=== PATIENT | male | born 1960 | race Caucasian/White ===

== ENCOUNTER → 2017-10-06 | Outpatient (CLI) | payer BC ==
[2016-05-10 13:43] VITALS: BP 124/86
[~2017-10-06] MED LIST: IBUPROFEN200 MG PO; TYLENOL 325MG325 MG PO
[2017-10-06 10:41] LABS: EOS # 0.2 (0.04-0.40); EOS % 3.2 % (0.0-4.0); HEMATOCRIT 39.9 % (42.0-52.0); HEMOGLOBIN 13.5 g/dL (13.5-18.0); LYMPH# 1.4 (1.50-4.00); MEAN CELL VOLUME 91 fl (78-100); MEAN CORPUSCULAR HEMOGLOBIN 31 pg (27-31); MEAN CORPUSCULAR HGB CONC 34 g/dL (33-37); MEAN PLATELET VOLUME 9.1 fl (7.4-10.4); MONO # 0.7 (0.20-0.80); NEU # 4.6 (1.40-6.50); PLATELET COUNT 251 K/mm3 (130-400); RED BLOOD COUNT 4.38 M/mm3 (4.20-5.60); RED CELL DISTRIBUTION WIDTH 12.3 % (11.5-14.5); WHITE BLOOD COUNT 6.9 K/mm3 (4.8-10.8)
[2017-10-06 10:57] LABS: ALBUMIN 4.1 g/dL (3.5-5.0); BUN/CREATININE RATIO 24.5 (6.0-26.0); CALCIUM 9.5 mg/dL (8.4-10.2); POTASSIUM 4.6 mmol/L (3.6-5.0); TOTAL PROTEIN 7.2 g/dL (6.3-8.2)
[2017-10-06 11:58] LABS: ERYTHROCYTE SEDIMENTATION RATE 8 mm/hr (0-20)
== END ==
LOC: LAB 10:14
PROVIDERS: Internal Medicine
DX: Z00.00 Encounter for general adult medical examination without abnormal findings (principal); Z12.5 Encounter for screening for malignant neoplasm of prostate

== ENCOUNTER → 2018-07-21 | Outpatient (CLI) | payer BC ==
[2016-05-10 13:43] VITALS: BP 124/86
[2018-07-21 08:54] LABS: ALBUMIN 4.3 g/dL (3.5-5.0); CALCIUM 9.5 mg/dL (8.4-10.2); TOTAL BILIRUBIN 1.2 mg/dL (0.2-1.3); TOTAL PROTEIN 7.2 g/dL (6.3-8.2)
[2018-07-21 09:01] LABS: BASO # 0.1 (0.02-0.10); EOS # 0.1 (0.04-0.40); EOS % 2.4 % (0.0-4.0); HEMATOCRIT 39.4 % (42.0-52.0); HEMOGLOBIN 13.6 g/dL (13.5-18.0); LYMPH# 1.4 (1.50-4.00); MEAN CELL VOLUME 91 fl (78-100); MEAN CORPUSCULAR HEMOGLOBIN 31 pg (27-31); MEAN CORPUSCULAR HGB CONC 35 g/dL (33-37); MEAN PLATELET VOLUME 9.4 fl (7.4-10.4); MONO # 0.5 (0.20-0.80); PLATELET COUNT 308 K/mm3 (130-400); RED BLOOD COUNT 4.33 M/mm3 (4.20-5.60); RED CELL DISTRIBUTION WIDTH 12.5 % (11.5-14.5)
[2018-07-21 11:05] LABS: ERYTHROCYTE SEDIMENTATION RATE 6 mm/hr (0-20)
== END ==
LOC: LAB 08:15
PROVIDERS: Internal Medicine
DX: Z12.5 Encounter for screening for malignant neoplasm of prostate (principal); Z00.00 Encounter for general adult medical examination without abnormal findings

== ENCOUNTER → 2018-10-01 | Outpatient (CLI) | payer BC ==
[2016-05-10 13:43] VITALS: BP 124/86
== END ==
LOC: LAB 10:57
DX: Z12.11 Encounter for screening for malignant neoplasm of colon (principal); Z00.00 Encounter for general adult medical examination without abnormal findings

== ENCOUNTER → 2019-09-09 | Outpatient (CLI) | payer BC ==
[2016-05-10 13:43] VITALS: BP 124/86
[2019-09-09 08:40] LABS: ALBUMIN 4.4 g/dL (3.5-5.0); POTASSIUM 4.3 mmol/L (3.5-5.1)
[2019-09-09 08:41] LABS: CALCIUM 9.9 mg/dL (8.3-10.5)
[2019-09-09 08:42] LABS: TOTAL PROTEIN 7.5 g/dL (6.4-8.3)
[2019-09-09 08:44] LABS: TOTAL BILIRUBIN 1.2 mg/dL (0.2-1.2)
[2019-09-09 09:34] LABS: BASO # 0.1 (0.02-0.10); EOS # 0.1 (0.04-0.40); EOS % 1.7 % (0.0-4.0); HEMATOCRIT 41.6 % (42.0-52.0); HEMOGLOBIN 14.2 g/dL (13.5-18.0); LYMPH# 1.7 (1.50-4.00); MEAN CELL VOLUME 90 fl (78-100); MEAN CORPUSCULAR HEMOGLOBIN 31 pg (27-31); MEAN CORPUSCULAR HGB CONC 34 g/dL (33-37); MEAN PLATELET VOLUME 8.9 fl (7.4-10.4); MONO # 0.5 (0.20-0.80); NEU # 3.7 (1.40-6.50); PLATELET COUNT 307 K/mm3 (130-400); RED BLOOD COUNT 4.64 M/mm3 (4.20-5.60); RED CELL DISTRIBUTION WIDTH 13.1 % (11.5-14.5)
[2019-09-09 09:37] LABS: ERYTHROCYTE SEDIMENTATION RATE 6 mm/hr (0-20)
== END ==
LOC: LAB 08:19
PROVIDERS: Internal Medicine
DX: Z00.00 Encounter for general adult medical examination without abnormal findings (principal); Z12.5 Encounter for screening for malignant neoplasm of prostate; Z12.11 Encounter for screening for malignant neoplasm of colon

== ENCOUNTER → 2019-09-22 | Outpatient (CLI) | payer BC ==
[2016-05-10 13:43] VITALS: BP 124/86
== END ==
LOC: LAB 12:02
DX: Z00.00 Encounter for general adult medical examination without abnormal findings (principal); Z12.11 Encounter for screening for malignant neoplasm of colon

== ENCOUNTER 2019-11-11 08:30 | Outpatient (RCR) | payer BC ==
[2016-05-10 13:43] VITALS: BP 124/86
== END 2019-12-13 | disposition still patient (30) ==
LOC: PT
DX: M25.561 Pain in right knee (principal); R53.1 Weakness

== ENCOUNTER → 2019-12-10 | Outpatient (CLI) | payer BC ==
[2016-05-10 13:43] VITALS: BP 124/86
[2019-12-10 11:09] LABS: HEMATOCRIT 41.5 % (42.0-52.0); HEMOGLOBIN 13.6 g/dL (13.5-18.0); MEAN CELL VOLUME 93 fl (78-100); MEAN CORPUSCULAR HEMOGLOBIN 30 pg (27-31); MEAN CORPUSCULAR HGB CONC 33 g/dL (33-37); MEAN PLATELET VOLUME 9.1 fl (7.4-10.4); PLATELET COUNT 250 K/mm3 (130-400); RED BLOOD COUNT 4.48 M/mm3 (4.20-5.60); RED CELL DISTRIBUTION WIDTH 12.9 % (11.5-14.5); WHITE BLOOD COUNT 4.7 K/mm3 (4.8-10.8)
[2019-12-10 11:37] LABS: POTASSIUM 4.2 mmol/L (3.5-5.1)
[2019-12-10 11:39] LABS: CALCIUM 8.6 mg/dL (8.3-10.5)
[2019-12-10 11:40] LABS: TOTAL PROTEIN 7.2 g/dL (6.4-8.3)
[2019-12-10 11:42] LABS: TOTAL BILIRUBIN 0.3 mg/dL (0.2-1.2)
[2019-12-10 12:17] LABS: LYMPHOCYTE 30 % (20-51); MONOCYTE 15 % (3-10); NEUTROPHILS 52 % (42-75)
[2019-12-10 12:33] LABS: ERYTHROCYTE SEDIMENTATION RATE 26 mm/hr (0-20)
== END ==
LOC: RAD 10:55 → LAB 10:55
PROVIDERS: Internal Medicine
DX: C61 Malignant neoplasm of prostate (principal); R06.02 Shortness of breath

== ENCOUNTER 2021-03-28 20:01 | Emergency (ER) | payer BC ==
[2021-03-28] MEDS ORDERED: ACETAMINOPHEN-H1 TA2 PO (20:43)
[2021-03-28] MEDS ORDERED: FLOMAX0.4 MG PO (20:43)
[2021-03-28] MEDS ORDERED: TRAMADOL 50 MG TAB PO (20:44)
[2021-03-28] MEDS ORDERED: KLONOPIN 0.5MG0.5 MG PO (20:44)
[2021-03-28 21:58] LABS: URINE APPEARANCE CLEAR; URINE COLOR YELLOW; URINE WBC 0 /hpf (0-3)
[2021-03-28 21:59] LABS: PH-URINE 7.5 (5.0 - 8.0); URINE BILIRUBIN NEGATIVE (NEGATIVE); URINE BLOOD NEGATIVE (NEGATIVE); URINE GLUCOSE NEGATIVE (NEGATIVE); URINE KETONE NEGATIVE (NEGATIVE); URINE LEUKOCYTE ESTERASE NEGATIVE (NEGATIVE); URINE NITRATE NEGATIVE (NEGATIVE); URINE PROTEIN(semi-quant) NEGATIVE (NEGATIVE); URINE UROBILINOGEN NORMAL (NORMAL)
[2021-03-28 22:18] VITALS: BP 111/66
== END 2021-03-28 22:18 | disposition home or self-care (01) ==
LOC: ED 20:01
PROVIDERS: Nurse Practitioner
DX: N99.89 Other postprocedural complications and disorders of genitourinary system (principal); N40.1 Benign prostatic hyperplasia with lower urinary tract symptoms; Z85.46 Personal history of malignant neoplasm of prostate

== ENCOUNTER → 2021-05-16 | Outpatient (CLI) | payer BC ==
[~2021-05-16] MED LIST changes: +ACETAMINOPHEN-H1 TA2 PO; +FLOMAX0.4 MG PO; +KLONOPIN 0.5MG0.5 MG PO; +ROXICODONE 55 MG/TAB PO; +TIZANIDINE HYDRO4 MG PO; +TRAMADOL 50 MG TAB PO
[2021-05-16 14:53] LABS: HEMATOCRIT 32.1 % (42.0-52.0); HEMOGLOBIN 10.8 g/dL (13.5-18.0); MEAN PLATELET VOLUME 8.5 fl (7.4-10.4); RED BLOOD COUNT 3.48 M/mm3 (4.20-5.60); RED CELL DISTRIBUTION WIDTH 11.9 % (11.5-14.5)
== END ==
LOC: LAB 14:41
PROVIDERS: Internal Medicine
DX: C61 Malignant neoplasm of prostate (principal); C77.2 Secondary and unspecified malignant neoplasm of intra-abdominal lymph nodes; C79.51 Secondary malignant neoplasm of bone

== ENCOUNTER 2021-05-18 09:35 | Emergency (ER) | payer BC ==
[~2021-05-18 09:35] MED LIST changes: -ROXICODONE 55 MG/TAB PO; -TIZANIDINE HYDRO4 MG PO
[2021-05-18 10:45] LABS: BASO # 0.06 (0.02-0.10); EOS # 0.09 (0.04-0.40); EOS % 1.3 % (0.0-4.0); HEMATOCRIT 30.6 % (42.0-52.0); HEMOGLOBIN 10.2 g/dL (13.5-18.0); LYMPH# 1.16 (1.50-4.00); MEAN CELL VOLUME 93 fl (78-100); MEAN CORPUSCULAR HEMOGLOBIN 31 pg (27-31); MEAN CORPUSCULAR HGB CONC 33 g/dL (33-37); MEAN PLATELET VOLUME 8.8 fl (7.4-10.4); MONO # 0.66 (0.20-0.80); NEU # 5.15 (1.40-6.50); PLATELET COUNT 387 K/mm3 (130-400); RED CELL DISTRIBUTION WIDTH 11.9 % (11.5-14.5); WHITE BLOOD COUNT 7.1 K/mm3 (4.8-10.8)
[2021-05-18 10:50] LABS: ALBUMIN 3.5 g/dL (3.5-5.0); POTASSIUM 4.5 mmol/L (3.5-5.1)
[2021-05-18 10:52] LABS: TOTAL PROTEIN 6.6 g/dL (6.4-8.3)
[2021-05-18 10:54] LABS: TOTAL BILIRUBIN 0.8 mg/dL (0.2-1.2)
[2021-05-18 11:00] LABS: URINE APPEARANCE CLEAR; URINE BILIRUBIN NEGATIVE (NEGATIVE); URINE BLOOD NEGATIVE (NEGATIVE); URINE COLOR YELLOW; URINE GLUCOSE NEGATIVE (NEGATIVE); URINE KETONE NEGATIVE (NEGATIVE); URINE LEUKOCYTE ESTERASE NEGATIVE (NEGATIVE); URINE MUCUS PRESENT (NOT PRESENT); URINE NITRATE NEGATIVE (NEGATIVE); URINE PROTEIN(semi-quant) NEGATIVE (NEGATIVE); URINE UROBILINOGEN NORMAL (NORMAL); URINE WBC 0-1 /hpf (0-3)
[2021-05-18] MEDS ORDERED: TIZANIDINE HYDRO4 MG PO (13:08)
[2021-05-18] MEDS ORDERED: ROXICODONE 55 MG/TAB PO (13:08)
[2021-05-18 14:02] VITALS: BP 107/66
== END 2021-05-18 13:06 | disposition home or self-care (01) ==
LOC: ED 09:35
PROVIDERS: Nurse Practitioner
DX: C61 Malignant neoplasm of prostate (principal); K62.5 Hemorrhage of anus and rectum
CPT/HCPCS: J2405; J7030; Q9967

== ENCOUNTER → 2021-05-29 | Outpatient (CLI) | payer BC ==
[~2021-05-29] MED LIST changes: +ROXICODONE 55 MG/TAB PO; +TIZANIDINE HYDRO4 MG PO
[2021-05-29 08:15] LABS: BASO # 0.01 (0.02-0.10); EOS # 0.01 (0.04-0.40); EOS % 0.2 % (0.0-4.0); HEMATOCRIT 29.5 % (42.0-52.0); HEMOGLOBIN 9.5 g/dL (13.5-18.0); MEAN CELL VOLUME 94 fl (78-100); MEAN CORPUSCULAR HEMOGLOBIN 30 pg (27-31); MEAN CORPUSCULAR HGB CONC 32 g/dL (33-37); MEAN PLATELET VOLUME 8.8 fl (7.4-10.4); MONO # 0.07 (0.20-0.80); NEU # 2.93 (1.40-6.50); PLATELET COUNT 370 K/mm3 (130-400); RED BLOOD COUNT 3.14 M/mm3 (4.20-5.60); RED CELL DISTRIBUTION WIDTH 11.8 % (11.5-14.5); WHITE BLOOD COUNT 4.3 K/mm3 (4.8-10.8)
[2021-05-29 08:17] LABS: ALBUMIN 3.2 g/dL (3.5-5.0); POTASSIUM 3.9 mmol/L (3.5-5.1)
[2021-05-29 08:19] LABS: CALCIUM 8.7 mg/dL (8.3-10.5)
[2021-05-29 08:20] LABS: TOTAL PROTEIN 5.9 g/dL (6.4-8.3)
[2021-05-29 08:22] LABS: TOTAL BILIRUBIN 0.9 mg/dL (0.2-1.2)
== END ==
LOC: LAB 07:56
PROVIDERS: Internal Medicine
DX: C61 Malignant neoplasm of prostate (principal)

== ENCOUNTER → 2021-06-05 | Outpatient (CLI) | payer BC ==
[2021-06-05 08:36] LABS: BASO # 0.04 (0.02-0.10); EOS # 0.01 (0.04-0.40); EOS % 0.2 % (0.0-4.0); HEMATOCRIT 29.6 % (42.0-52.0); HEMOGLOBIN 9.6 g/dL (13.5-18.0); LYMPH# 1.37 (1.50-4.00); MEAN CELL VOLUME 91 fl (78-100); MEAN CORPUSCULAR HEMOGLOBIN 30 pg (27-31); MEAN CORPUSCULAR HGB CONC 32 g/dL (33-37); MONO # 0.73 (0.20-0.80); NEU # 3.99 (1.40-6.50); PLATELET COUNT 478 K/mm3 (130-400); RED BLOOD COUNT 3.25 M/mm3 (4.20-5.60); RED CELL DISTRIBUTION WIDTH 12.6 % (11.5-14.5); WHITE BLOOD COUNT 6.2 K/mm3 (4.8-10.8)
[2021-06-05 08:42] LABS: ALBUMIN 2.9 g/dL (3.5-5.0)
[2021-06-05 08:44] LABS: CALCIUM 8.8 mg/dL (8.3-10.5)
[2021-06-05 08:45] LABS: TOTAL PROTEIN 5.9 g/dL (6.4-8.3)
[2021-06-05 08:47] LABS: TOTAL BILIRUBIN 0.4 mg/dL (0.2-1.2)
== END ==
LOC: LAB 08:20
PROVIDERS: Internal Medicine
DX: C61 Malignant neoplasm of prostate (principal)

== ENCOUNTER → 2021-07-03 | Outpatient (CLI) | payer BC ==
[2021-07-03 12:26] LABS: HEMATOCRIT 30.9 % (42.0-52.0); HEMOGLOBIN 9.8 g/dL (13.5-18.0); MEAN CELL VOLUME 95 fl (78-100); MEAN CORPUSCULAR HEMOGLOBIN 30 pg (27-31); MEAN CORPUSCULAR HGB CONC 32 g/dL (33-37); MEAN PLATELET VOLUME 8.5 fl (7.4-10.4); PLATELET COUNT 307 K/mm3 (130-400); RED BLOOD COUNT 3.25 M/mm3 (4.20-5.60); RED CELL DISTRIBUTION WIDTH 16.1 % (11.5-14.5); WHITE BLOOD COUNT 3.9 K/mm3 (4.8-10.8)
[2021-07-03 12:45] LABS: BAND 3 % (0-10); LYMPHOCYTE 13 % (20-51); MONOCYTE 2 % (3-10); NEUTROPHILS 79 % (42-75)
[2021-07-03 12:48] LABS: ALBUMIN 3.2 g/dL (3.5-5.0); POTASSIUM 3.9 mmol/L (3.5-5.1)
[2021-07-03 12:49] LABS: CALCIUM 9.2 mg/dL (8.3-10.5)
[2021-07-03 12:52] LABS: TOTAL BILIRUBIN 0.5 mg/dL (0.2-1.2)
== END ==
LOC: LAB 12:11
PROVIDERS: Internal Medicine
DX: C61 Malignant neoplasm of prostate (principal)

== ENCOUNTER → 2021-07-10 | Outpatient (CLI) | payer BC ==
[2021-07-10 07:56] LABS: ALBUMIN 2.9 g/dL (3.5-5.0)
[2021-07-10 07:57] LABS: POTASSIUM 3.9 mmol/L (3.5-5.1)
[2021-07-10 07:58] LABS: CALCIUM 9.3 mg/dL (8.3-10.5)
[2021-07-10 07:59] LABS: TOTAL PROTEIN 5.8 g/dL (6.4-8.3)
[2021-07-10 08:01] LABS: TOTAL BILIRUBIN 0.4 mg/dL (0.2-1.2)
== END ==
LOC: LAB 07:15
PROVIDERS: Internal Medicine
DX: C61 Malignant neoplasm of prostate (principal)

== ENCOUNTER → 2021-07-11 | Outpatient (CLI) | payer BC ==
[2021-07-11 14:16] LABS: URINE MUCUS PRESENT (NOT PRESENT); URINE WBC >50 /hpf (0-3)
== END ==
LOC: LAB 13:42
PROVIDERS: Internal Medicine
DX: R19.7 Diarrhea, unspecified (principal); R30.9 Painful micturition, unspecified

== ENCOUNTER → 2021-07-17 | Outpatient (CLI) | payer BC ==
[2021-07-17 08:01] LABS: BASO # 0.03 (0.02-0.10); EOS # 0.07 (0.04-0.40); EOS % 1.1 % (0.0-4.0); HEMATOCRIT 33.7 % (42.0-52.0); HEMOGLOBIN 10.6 g/dL (13.5-18.0); LYMPH# 0.86 (1.50-4.00); MEAN CELL VOLUME 93 fl (78-100); MEAN CORPUSCULAR HEMOGLOBIN 29 pg (27-31); MEAN CORPUSCULAR HGB CONC 32 g/dL (33-37); MEAN PLATELET VOLUME 7.9 fl (7.4-10.4); MONO # 0.43 (0.20-0.80); NEU # 5.18 (1.40-6.50); PLATELET COUNT 386 K/mm3 (130-400); RED BLOOD COUNT 3.64 M/mm3 (4.20-5.60); RED CELL DISTRIBUTION WIDTH 17.3 % (11.5-14.5); WHITE BLOOD COUNT 6.6 K/mm3 (4.8-10.8)
[2021-07-17 08:07] LABS: ALBUMIN 3.1 g/dL (3.5-5.0)
[2021-07-17 08:08] LABS: POTASSIUM 4.4 mmol/L (3.5-5.1)
[2021-07-17 08:09] LABS: CALCIUM 9.3 mg/dL (8.3-10.5)
[2021-07-17 08:10] LABS: TOTAL PROTEIN 6.3 g/dL (6.4-8.3)
[2021-07-17 08:12] LABS: TOTAL BILIRUBIN 0.3 mg/dL (0.2-1.2)
== END ==
LOC: LAB 07:34
PROVIDERS: Internal Medicine
DX: C61 Malignant neoplasm of prostate (principal)

== ENCOUNTER → 2021-07-24 | Outpatient (CLI) | payer BC ==
[2021-07-24 07:43] LABS: BASO # 0.01 (0.02-0.10); HEMATOCRIT 33.2 % (42.0-52.0); HEMOGLOBIN 10.6 g/dL (13.5-18.0); LYMPH# 0.91 (1.50-4.00); MEAN CELL VOLUME 91 fl (78-100); MEAN CORPUSCULAR HEMOGLOBIN 29 pg (27-31); MEAN CORPUSCULAR HGB CONC 32 g/dL (33-37); MEAN PLATELET VOLUME 8.7 fl (7.4-10.4); MONO # 0.06 (0.20-0.80); NEU # 2.62 (1.40-6.50); PLATELET COUNT 464 K/mm3 (130-400); RED BLOOD COUNT 3.66 M/mm3 (4.20-5.60); WHITE BLOOD COUNT 3.6 K/mm3 (4.8-10.8)
[2021-07-24 07:49] LABS: ALBUMIN 3.5 g/dL (3.5-5.0); POTASSIUM 3.5 mmol/L (3.5-5.1)
[2021-07-24 07:50] LABS: CALCIUM 9.3 mg/dL (8.3-10.5)
[2021-07-24 07:51] LABS: TOTAL PROTEIN 6.5 g/dL (6.4-8.3)
[2021-07-24 07:53] LABS: TOTAL BILIRUBIN 0.9 mg/dL (0.2-1.2)
== END ==
LOC: LAB 07:13
PROVIDERS: Internal Medicine
DX: C61 Malignant neoplasm of prostate (principal)

== ENCOUNTER → 2021-07-31 | Outpatient (CLI) | payer BC ==
[2021-07-31 07:59] LABS: HEMOGLOBIN 9.9 g/dL (13.5-18.0); MEAN CELL VOLUME 93 fl (78-100); MEAN CORPUSCULAR HEMOGLOBIN 29 pg (27-31); MEAN CORPUSCULAR HGB CONC 31 g/dL (33-37); MEAN PLATELET VOLUME 8.2 fl (7.4-10.4); PLATELET COUNT 302 K/mm3 (130-400); RED BLOOD COUNT 3.46 M/mm3 (4.20-5.60); RED CELL DISTRIBUTION WIDTH 17.7 % (11.5-14.5); WHITE BLOOD COUNT 2.5 K/mm3 (4.8-10.8)
[2021-07-31 08:06] LABS: POTASSIUM 3.8 mmol/L (3.5-5.1)
[2021-07-31 08:07] LABS: CALCIUM 9.1 mg/dL (8.3-10.5)
[2021-07-31 08:08] LABS: TOTAL PROTEIN 5.6 g/dL (6.4-8.3)
[2021-07-31 08:10] LABS: TOTAL BILIRUBIN 0.4 mg/dL (0.2-1.2)
[2021-07-31 08:23] LABS: BAND 2 % (0-10); LYMPHOCYTE 37 % (20-51); METAMYELOCYTE 3 % (0-0); MONOCYTE 18 % (3-10); NEUTROPHILS 36 % (42-75)
== END ==
LOC: LAB 07:45
PROVIDERS: Internal Medicine
DX: C61 Malignant neoplasm of prostate (principal)

== ENCOUNTER → 2021-08-07 | Outpatient (CLI) | payer BC ==
[2021-08-07 07:44] LABS: BASO # 0.05 K/mm3 (0.02-0.10); EOS # 0.05 K/mm3 (0.04-0.40); EOS % 0.6 % (0.0-4.0); HEMATOCRIT 34.3 % (42.0-52.0); HEMOGLOBIN 10.6 g/dL (13.5-18.0); LYMPH# 1.07 K/mm3 (1.50-4.00); MEAN CELL VOLUME 94 fl (78-100); MEAN CORPUSCULAR HEMOGLOBIN 29 pg (27-31); MEAN CORPUSCULAR HGB CONC 31 g/dL (33-37); MEAN PLATELET VOLUME 8.4 fl (7.4-10.4); MONO # 0.42 K/mm3 (0.20-0.80); NEU # 7.08 K/mm3 (1.40-6.50); PLATELET COUNT 373 K/mm3 (130-400); RED BLOOD COUNT 3.64 M/mm3 (4.20-5.60); RED CELL DISTRIBUTION WIDTH 18.2 % (11.5-14.5); WHITE BLOOD COUNT 8.8 K/mm3 (4.8-10.8)
[2021-08-07 07:55] LABS: ALBUMIN 3.4 g/dL (3.5-5.0); POTASSIUM 4.1 mmol/L (3.5-5.1)
[2021-08-07 07:56] LABS: CALCIUM 9.6 mg/dL (8.3-10.5)
[2021-08-07 07:57] LABS: TOTAL PROTEIN 6.4 g/dL (6.4-8.3)
[2021-08-07 07:59] LABS: TOTAL BILIRUBIN 0.4 mg/dL (0.2-1.2)
== END ==
LOC: LAB 07:10
PROVIDERS: Internal Medicine
DX: C61 Malignant neoplasm of prostate (principal)

== ENCOUNTER → 2021-08-14 | Outpatient (CLI) | payer BC ==
[2021-08-14 07:44] LABS: BASO # 0.03 K/mm3 (0.02-0.10); EOS # 0.03 K/mm3 (0.04-0.40); EOS % 0.8 % (0.0-4.0); HEMATOCRIT 33.9 % (42.0-52.0); HEMOGLOBIN 10.8 g/dL (13.5-18.0); LYMPH# 0.63 K/mm3 (1.50-4.00); MEAN CELL VOLUME 93 fl (78-100); MEAN CORPUSCULAR HEMOGLOBIN 30 pg (27-31); MEAN CORPUSCULAR HGB CONC 32 g/dL (33-37); MEAN PLATELET VOLUME 8.4 fl (7.4-10.4); NEU # 3.17 K/mm3 (1.40-6.50); PLATELET COUNT 301 K/mm3 (130-400); RED BLOOD COUNT 3.66 M/mm3 (4.20-5.60); RED CELL DISTRIBUTION WIDTH 17.5 % (11.5-14.5)
[2021-08-14 08:57] LABS: ALBUMIN 3.5 g/dL (3.5-5.0)
[2021-08-14 08:58] LABS: CALCIUM 9.1 mg/dL (8.3-10.5)
[2021-08-14 08:59] LABS: TOTAL PROTEIN 6.3 g/dL (6.4-8.3)
[2021-08-14 09:01] LABS: TOTAL BILIRUBIN 0.6 mg/dL (0.2-1.2)
== END ==
LOC: LAB 07:14
PROVIDERS: Internal Medicine
DX: C61 Malignant neoplasm of prostate (principal)

== ENCOUNTER → 2021-08-21 | Outpatient (CLI) | payer BC ==
[2021-08-21 10:52] LABS: BASO # 0.03 K/mm3 (0.02-0.10); EOS # 0.03 K/mm3 (0.04-0.40); EOS % 1.1 % (0.0-4.0); HEMATOCRIT 32.6 % (42.0-52.0); HEMOGLOBIN 10.1 g/dL (13.5-18.0); LYMPH# 0.64 K/mm3 (1.50-4.00); MEAN CELL VOLUME 92 fl (78-100); MEAN CORPUSCULAR HEMOGLOBIN 29 pg (27-31); MEAN CORPUSCULAR HGB CONC 31 g/dL (33-37); MEAN PLATELET VOLUME 8.3 fl (7.4-10.4); MONO # 0.74 K/mm3 (0.20-0.80); NEU # 1.21 K/mm3 (1.40-6.50); PLATELET COUNT 311 K/mm3 (130-400); RED BLOOD COUNT 3.53 M/mm3 (4.20-5.60); RED CELL DISTRIBUTION WIDTH 17.5 % (11.5-14.5); WHITE BLOOD COUNT 2.7 K/mm3 (4.8-10.8)
[2021-08-21 11:06] LABS: ALBUMIN 3.3 g/dL (3.5-5.0); POTASSIUM 3.7 mmol/L (3.5-5.1)
[2021-08-21 11:08] LABS: CALCIUM 9.1 mg/dL (8.3-10.5)
[2021-08-21 11:09] LABS: TOTAL PROTEIN 6.2 g/dL (6.4-8.3)
[2021-08-21 11:11] LABS: TOTAL BILIRUBIN 0.5 mg/dL (0.2-1.2)
== END ==
LOC: LAB 10:35
PROVIDERS: Internal Medicine
DX: C61 Malignant neoplasm of prostate (principal)

== ENCOUNTER → 2021-08-27 | Outpatient (CLI) | payer BC ==
[2021-08-27 08:54] LABS: BASO # 0.04 K/mm3 (0.02-0.10); EOS # 0.05 K/mm3 (0.04-0.40); EOS % 0.7 % (0.0-4.0); HEMATOCRIT 35.2 % (42.0-52.0); LYMPH# 1.24 K/mm3 (1.50-4.00); MEAN CELL VOLUME 91 fl (78-100); MEAN CORPUSCULAR HEMOGLOBIN 29 pg (27-31); MEAN CORPUSCULAR HGB CONC 31 g/dL (33-37); MEAN PLATELET VOLUME 8.6 fl (7.4-10.4); MONO # 0.84 K/mm3 (0.20-0.80); NEU # 4.75 K/mm3 (1.40-6.50); PLATELET COUNT 394 K/mm3 (130-400); RED BLOOD COUNT 3.85 M/mm3 (4.20-5.60); RED CELL DISTRIBUTION WIDTH 16.9 % (11.5-14.5)
[2021-08-27 09:26] LABS: ALBUMIN 3.4 g/dL (3.5-5.0); POTASSIUM 4.3 mmol/L (3.5-5.1)
[2021-08-27 09:27] LABS: CALCIUM 9.6 mg/dL (8.3-10.5)
[2021-08-27 09:28] LABS: TOTAL PROTEIN 6.5 g/dL (6.4-8.3)
[2021-08-27 09:30] LABS: TOTAL BILIRUBIN 0.4 mg/dL (0.2-1.2)
== END ==
LOC: LAB 07:27
PROVIDERS: Internal Medicine
DX: C61 Malignant neoplasm of prostate (principal)

== ENCOUNTER → 2021-09-03 | Outpatient (CLI) | payer BC ==
[2021-09-03 07:48] LABS: BASO # 0.01 K/mm3 (0.02-0.10); HEMATOCRIT 35.4 % (42.0-52.0); HEMOGLOBIN 11.1 g/dL (13.5-18.0); LYMPH# 0.76 K/mm3 (1.50-4.00); MEAN CELL VOLUME 92 fl (78-100); MEAN CORPUSCULAR HEMOGLOBIN 29 pg (27-31); MEAN CORPUSCULAR HGB CONC 31 g/dL (33-37); MEAN PLATELET VOLUME 8.4 fl (7.4-10.4); MONO # 0.15 K/mm3 (0.20-0.80); NEU # 4.65 K/mm3 (1.40-6.50); PLATELET COUNT 308 K/mm3 (130-400); RED BLOOD COUNT 3.87 M/mm3 (4.20-5.60); RED CELL DISTRIBUTION WIDTH 16.5 % (11.5-14.5); WHITE BLOOD COUNT 5.6 K/mm3 (4.8-10.8)
[2021-09-03 07:59] LABS: ALBUMIN 3.6 g/dL (3.5-5.0); POTASSIUM 3.9 mmol/L (3.5-5.1)
[2021-09-03 08:00] LABS: CALCIUM 9.3 mg/dL (8.3-10.5)
[2021-09-03 08:01] LABS: TOTAL PROTEIN 6.5 g/dL (6.4-8.3)
[2021-09-03 08:03] LABS: TOTAL BILIRUBIN 0.5 mg/dL (0.2-1.2)
== END ==
LOC: LAB 07:36
PROVIDERS: Internal Medicine
DX: C61 Malignant neoplasm of prostate (principal)

== ENCOUNTER → 2021-09-10 | Outpatient (CLI) | payer BC ==
[2021-09-10 07:56] LABS: BASO # 0.03 K/mm3 (0.02-0.10); EOS # 0.03 K/mm3 (0.04-0.40); EOS % 1.3 % (0.0-4.0); HEMATOCRIT 33.4 % (42.0-52.0); HEMOGLOBIN 10.3 g/dL (13.5-18.0); LYMPH# 0.67 K/mm3 (1.50-4.00); MEAN CELL VOLUME 92 fl (78-100); MEAN CORPUSCULAR HEMOGLOBIN 28 pg (27-31); MEAN CORPUSCULAR HGB CONC 31 g/dL (33-37); MEAN PLATELET VOLUME 8.3 fl (7.4-10.4); MONO # 0.51 K/mm3 (0.20-0.80); PLATELET COUNT 306 K/mm3 (130-400); RED BLOOD COUNT 3.65 M/mm3 (4.20-5.60); RED CELL DISTRIBUTION WIDTH 16.7 % (11.5-14.5); WHITE BLOOD COUNT 2.2 K/mm3 (4.8-10.8)
[2021-09-10 08:07] LABS: ALBUMIN 3.5 g/dL (3.5-5.0)
[2021-09-10 08:08] LABS: POTASSIUM 3.8 mmol/L (3.5-5.1)
[2021-09-10 08:10] LABS: TOTAL PROTEIN 6.1 g/dL (6.4-8.3)
[2021-09-10 08:12] LABS: TOTAL BILIRUBIN 0.3 mg/dL (0.2-1.2)
== END ==
LOC: LAB 07:44
PROVIDERS: Internal Medicine
DX: C61 Malignant neoplasm of prostate (principal)

== ENCOUNTER → 2021-09-17 | Outpatient (CLI) | payer BC ==
[2021-09-17 07:54] LABS: BASO # 0.03 K/mm3 (0.02-0.10); EOS # 0.05 K/mm3 (0.04-0.40); EOS % 0.4 % (0.0-4.0); HEMATOCRIT 37.6 % (42.0-52.0); HEMOGLOBIN 11.6 g/dL (13.5-18.0); LYMPH# 0.86 K/mm3 (1.50-4.00); MEAN CELL VOLUME 90 fl (78-100); MEAN CORPUSCULAR HEMOGLOBIN 28 pg (27-31); MEAN CORPUSCULAR HGB CONC 31 g/dL (33-37); MEAN PLATELET VOLUME 8.2 fl (7.4-10.4); MONO # 0.76 K/mm3 (0.20-0.80); NEU # 9.42 K/mm3 (1.40-6.50); PLATELET COUNT 402 K/mm3 (130-400); RED BLOOD COUNT 4.18 M/mm3 (4.20-5.60); RED CELL DISTRIBUTION WIDTH 16.5 % (11.5-14.5); WHITE BLOOD COUNT 11.2 K/mm3 (4.8-10.8)
[2021-09-17 08:15] LABS: ALBUMIN 3.6 g/dL (3.5-5.0); POTASSIUM 4.2 mmol/L (3.5-5.1)
[2021-09-17 08:16] LABS: CALCIUM 9.3 mg/dL (8.3-10.5)
[2021-09-17 08:18] LABS: TOTAL PROTEIN 6.9 g/dL (6.4-8.3)
[2021-09-17 08:19] LABS: TOTAL BILIRUBIN 0.3 mg/dL (0.2-1.2)
== END ==
LOC: LAB 07:18
PROVIDERS: Internal Medicine
DX: C61 Malignant neoplasm of prostate (principal)

== ENCOUNTER → 2021-09-25 | Outpatient (CLI) | payer BC ==
[2021-09-25 13:39] LABS: HEMATOCRIT 35.5 % (42.0-52.0); HEMOGLOBIN 10.9 g/dL (13.5-18.0); MEAN CELL VOLUME 90 fl (78-100); MEAN CORPUSCULAR HEMOGLOBIN 28 pg (27-31); MEAN CORPUSCULAR HGB CONC 31 g/dL (33-37); MEAN PLATELET VOLUME 8.3 fl (7.4-10.4); PLATELET COUNT 351 K/mm3 (130-400); RED BLOOD COUNT 3.96 M/mm3 (4.20-5.60); RED CELL DISTRIBUTION WIDTH 16.3 % (11.5-14.5); WHITE BLOOD COUNT 8.4 K/mm3 (4.8-10.8)
[2021-09-25 13:44] LABS: ALBUMIN 3.7 g/dL (3.5-5.0); POTASSIUM 4.2 mmol/L (3.5-5.1)
[2021-09-25 13:46] LABS: CALCIUM 8.9 mg/dL (8.3-10.5)
[2021-09-25 13:47] LABS: TOTAL PROTEIN 6.6 g/dL (6.4-8.3)
[2021-09-25 13:49] LABS: TOTAL BILIRUBIN 0.4 mg/dL (0.2-1.2)
[2021-09-25 14:04] LABS: LYMPHOCYTE 8 % (20-51); MONOCYTE 3 % (3-10); NEUTROPHILS 89 % (42-75)
== END ==
LOC: LAB 13:22
PROVIDERS: Internal Medicine
DX: Z01.89 Encounter for other specified special examinations (principal)

== ENCOUNTER → 2021-10-01 | Outpatient (CLI) | payer BC ==
[2021-10-01 10:26] LABS: HEMATOCRIT 33.7 % (42.0-52.0); HEMOGLOBIN 10.3 g/dL (13.5-18.0); MEAN CELL VOLUME 90 fl (78-100); MEAN CORPUSCULAR HEMOGLOBIN 27 pg (27-31); MEAN CORPUSCULAR HGB CONC 31 g/dL (33-37); MEAN PLATELET VOLUME 8.1 fl (7.4-10.4); PLATELET COUNT 285 K/mm3 (130-400); RED BLOOD COUNT 3.76 M/mm3 (4.20-5.60); RED CELL DISTRIBUTION WIDTH 16.3 % (11.5-14.5)
[2021-10-01 10:44] LABS: ALBUMIN 3.5 g/dL (3.5-5.0); POTASSIUM 3.8 mmol/L (3.5-5.1)
[2021-10-01 10:46] LABS: CALCIUM 9.1 mg/dL (8.3-10.5)
[2021-10-01 10:47] LABS: TOTAL PROTEIN 6.1 g/dL (6.4-8.3)
[2021-10-01 10:49] LABS: TOTAL BILIRUBIN 0.4 mg/dL (0.2-1.2)
[2021-10-01 10:53] LABS: WHITE BLOOD COUNT 1.8 K/mm3 (4.8-10.8)
[2021-10-01 10:54] LABS: BAND 2 % (0-10); LYMPHOCYTE 40 % (20-51); MONOCYTE 26 % (3-10); NEUTROPHILS 25 % (42-75)
[2021-10-01 10:55] LABS: HYPOCHROMIA 1+
== END ==
LOC: LAB 10:16
PROVIDERS: Internal Medicine
DX: C61 Malignant neoplasm of prostate (principal)

== ENCOUNTER → 2021-10-08 | Outpatient (CLI) | payer BC ==
[2021-10-08 08:18] LABS: BASO # 0.06 K/mm3 (0.02-0.10); EOS # 0.12 K/mm3 (0.04-0.40); HEMATOCRIT 34.7 % (42.0-52.0); HEMOGLOBIN 10.9 g/dL (13.5-18.0); LYMPH# 0.95 K/mm3 (1.50-4.00); MEAN CELL VOLUME 88 fl (78-100); MEAN CORPUSCULAR HEMOGLOBIN 28 pg (27-31); MEAN CORPUSCULAR HGB CONC 31 g/dL (33-37); MEAN PLATELET VOLUME 8.4 fl (7.4-10.4); MONO # 0.56 K/mm3 (0.20-0.80); NEU # 4.31 K/mm3 (1.40-6.50); PLATELET COUNT 341 K/mm3 (130-400); RED BLOOD COUNT 3.96 M/mm3 (4.20-5.60); WHITE BLOOD COUNT 6.1 K/mm3 (4.8-10.8)
[2021-10-08 08:39] LABS: ALBUMIN 3.5 g/dL (3.5-5.0); POTASSIUM 3.5 mmol/L (3.5-5.1)
[2021-10-08 08:40] LABS: CALCIUM 9.1 mg/dL (8.3-10.5)
[2021-10-08 08:41] LABS: TOTAL PROTEIN 5.9 g/dL (6.4-8.3)
[2021-10-08 08:43] LABS: TOTAL BILIRUBIN 0.3 mg/dL (0.2-1.2)
== END ==
LOC: LAB 08:06
PROVIDERS: Internal Medicine
DX: C61 Malignant neoplasm of prostate (principal)

== ENCOUNTER → 2021-10-18 | Outpatient (CLI) | payer BC ==
[2021-10-18 16:25] LABS: HEMATOCRIT 35.5 % (42.0-52.0); HEMOGLOBIN 10.9 g/dL (13.5-18.0); MEAN CELL VOLUME 87 fl (78-100); MEAN CORPUSCULAR HEMOGLOBIN 27 pg (27-31); MEAN CORPUSCULAR HGB CONC 31 g/dL (33-37); MEAN PLATELET VOLUME 8.5 fl (7.4-10.4); PLATELET COUNT 385 K/mm3 (130-400); RED BLOOD COUNT 4.06 M/mm3 (4.20-5.60); RED CELL DISTRIBUTION WIDTH 16.9 % (11.5-14.5); WHITE BLOOD COUNT 12.2 K/mm3 (4.8-10.8)
[2021-10-18 16:34] LABS: ALBUMIN 3.8 g/dL (3.5-5.0)
[2021-10-18 16:35] LABS: POTASSIUM 4.3 mmol/L (3.5-5.1)
[2021-10-18 16:36] LABS: CALCIUM 9.6 mg/dL (8.3-10.5)
[2021-10-18 16:37] LABS: TOTAL PROTEIN 7.1 g/dL (6.4-8.3)
[2021-10-18 16:39] LABS: TOTAL BILIRUBIN 0.7 mg/dL (0.2-1.2)
[2021-10-18 17:36] LABS: LYMPHOCYTE 4 % (20-51); MONOCYTE 2 % (3-10); NEUTROPHILS 94 % (42-75); TEAR DROP CELLS 1+
== END ==
LOC: LAB 16:15
PROVIDERS: Internal Medicine
DX: C61 Malignant neoplasm of prostate (principal)

== ENCOUNTER → 2021-10-25 | Outpatient (CLI) | payer BC ==
[2021-10-25 07:31] LABS: HEMATOCRIT 37.3 % (42.0-52.0); HEMOGLOBIN 11.6 g/dL (13.5-18.0); MEAN CELL VOLUME 88 fl (78-100); MEAN CORPUSCULAR HEMOGLOBIN 27 pg (27-31); MEAN CORPUSCULAR HGB CONC 31 g/dL (33-37); MEAN PLATELET VOLUME 8.4 fl (7.4-10.4); PLATELET COUNT 374 K/mm3 (130-400); RED BLOOD COUNT 4.26 M/mm3 (4.20-5.60); RED CELL DISTRIBUTION WIDTH 17.3 % (11.5-14.5); WHITE BLOOD COUNT 2.2 K/mm3 (4.8-10.8)
[2021-10-25 07:38] LABS: ALBUMIN 3.7 g/dL (3.5-5.0)
[2021-10-25 07:39] LABS: POTASSIUM 3.8 mmol/L (3.5-5.1)
[2021-10-25 07:40] LABS: CALCIUM 9.7 mg/dL (8.3-10.5)
[2021-10-25 07:41] LABS: TOTAL PROTEIN 6.8 g/dL (6.4-8.3)
[2021-10-25 07:42] LABS: LYMPHOCYTE 38 % (20-51); MONOCYTE 14 % (3-10); NEUTROPHILS 39 % (42-75)
[2021-10-25 07:43] LABS: TOTAL BILIRUBIN 0.6 mg/dL (0.2-1.2)
== END ==
LOC: LAB 07:14
PROVIDERS: Internal Medicine
DX: C61 Malignant neoplasm of prostate (principal)

== ENCOUNTER → 2021-11-01 | Outpatient (CLI) | payer BC ==
[2021-11-01 13:17] LABS: ALBUMIN 3.4 g/dL (3.5-5.0); POTASSIUM 3.7 mmol/L (3.5-5.1)
[2021-11-01 13:18] LABS: HEMATOCRIT 37.6 % (42.0-52.0); HEMOGLOBIN 11.6 g/dL (13.5-18.0); MEAN CELL VOLUME 87 fl (78-100); MEAN CORPUSCULAR HEMOGLOBIN 27 pg (27-31); MEAN CORPUSCULAR HGB CONC 31 g/dL (33-37); MEAN PLATELET VOLUME 8.5 fl (7.4-10.4); PLATELET COUNT 376 K/mm3 (130-400); RED BLOOD COUNT 4.34 M/mm3 (4.20-5.60)
[2021-11-01 13:19] LABS: CALCIUM 9.6 mg/dL (8.3-10.5)
[2021-11-01 13:20] LABS: TOTAL PROTEIN 6.6 g/dL (6.4-8.3)
[2021-11-01 13:22] LABS: TOTAL BILIRUBIN 0.3 mg/dL (0.2-1.2)
[2021-11-01 15:18] LABS: LYMPHOCYTE 10 % (20-51); MONOCYTE 4 % (3-10); NEUTROPHILS 84 % (42-75)
== END ==
LOC: LAB 12:52
PROVIDERS: Internal Medicine
DX: C61 Malignant neoplasm of prostate (principal)

== ENCOUNTER → 2021-11-27 | Outpatient (CLI) | payer BC ==
[2021-11-27 16:48] LABS: BASO # 0.03 K/mm3 (0.02-0.10); EOS # 0.14 K/mm3 (0.04-0.40); EOS % 2.4 % (0.0-4.0); HEMOGLOBIN 12.1 g/dL (13.5-18.0); LYMPH# 0.67 K/mm3 (1.50-4.00); MEAN CELL VOLUME 87 fl (78-100); MEAN CORPUSCULAR HEMOGLOBIN 27 pg (27-31); MEAN CORPUSCULAR HGB CONC 31 g/dL (33-37); MEAN PLATELET VOLUME 8.5 fl (7.4-10.4); MONO # 0.46 K/mm3 (0.20-0.80); NEU # 4.62 K/mm3 (1.40-6.50); PLATELET COUNT 385 K/mm3 (130-400); RED BLOOD COUNT 4.46 M/mm3 (4.20-5.60); RED CELL DISTRIBUTION WIDTH 17.3 % (11.5-14.5); WHITE BLOOD COUNT 5.9 K/mm3 (4.8-10.8)
[2021-11-27 17:02] LABS: ALBUMIN 3.8 g/dL (3.5-5.0)
[2021-11-27 17:03] LABS: CALCIUM 10.5 mg/dL (8.3-10.5)
[2021-11-27 17:06] LABS: TOTAL BILIRUBIN 0.5 mg/dL (0.2-1.2)
== END ==
LOC: LAB 16:31
PROVIDERS: Internal Medicine
DX: C61 Malignant neoplasm of prostate (principal)

== ENCOUNTER → 2021-12-03 | Outpatient (CLI) | payer BC ==
[2021-12-03 11:36] LABS: BASO # 0.05 K/mm3 (0.02-0.10); EOS # 0.08 K/mm3 (0.04-0.40); EOS % 1.1 % (0.0-4.0); HEMATOCRIT 35.8 % (42.0-52.0); HEMOGLOBIN 11.1 g/dL (13.5-18.0); LYMPH# 0.47 K/mm3 (1.50-4.00); MEAN CELL VOLUME 88 fl (78-100); MEAN CORPUSCULAR HEMOGLOBIN 27 pg (27-31); MEAN CORPUSCULAR HGB CONC 31 g/dL (33-37); MONO # 0.27 K/mm3 (0.20-0.80); NEU # 6.26 K/mm3 (1.40-6.50); PLATELET COUNT 347 K/mm3 (130-400); RED BLOOD COUNT 4.06 M/mm3 (4.20-5.60); WHITE BLOOD COUNT 7.1 K/mm3 (4.8-10.8)
[2021-12-03 11:40] LABS: ALBUMIN 3.7 g/dL (3.5-5.0)
[2021-12-03 11:42] LABS: CALCIUM 10.3 mg/dL (8.3-10.5)
[2021-12-03 11:43] LABS: TOTAL PROTEIN 6.9 g/dL (6.4-8.3)
[2021-12-03 11:45] LABS: TOTAL BILIRUBIN 0.6 mg/dL (0.2-1.2)
== END ==
LOC: LAB 10:44
PROVIDERS: Internal Medicine
DX: C61 Malignant neoplasm of prostate (principal)

== ENCOUNTER → 2021-12-10 | Outpatient (CLI) | payer BC ==
[2021-12-10 07:38] LABS: BASO # 0.05 K/mm3 (0.02-0.10); EOS # 0.03 K/mm3 (0.04-0.40); EOS % 0.8 % (0.0-4.0); HEMATOCRIT 35.6 % (42.0-52.0); HEMOGLOBIN 11.2 g/dL (13.5-18.0); LYMPH# 0.67 K/mm3 (1.50-4.00); MEAN CELL VOLUME 88 fl (78-100); MEAN CORPUSCULAR HEMOGLOBIN 28 pg (27-31); MEAN CORPUSCULAR HGB CONC 32 g/dL (33-37); MEAN PLATELET VOLUME 8.7 fl (7.4-10.4); MONO # 0.35 K/mm3 (0.20-0.80); NEU # 2.65 K/mm3 (1.40-6.50); PLATELET COUNT 385 K/mm3 (130-400); RED BLOOD COUNT 4.04 M/mm3 (4.20-5.60); RED CELL DISTRIBUTION WIDTH 17.2 % (11.5-14.5); WHITE BLOOD COUNT 3.8 K/mm3 (4.8-10.8)
[2021-12-10 07:51] LABS: ALBUMIN 3.8 g/dL (3.5-5.0)
[2021-12-10 07:52] LABS: POTASSIUM 3.7 mmol/L (3.5-5.1)
[2021-12-10 07:53] LABS: CALCIUM 11.4 mg/dL (8.3-10.5)
[2021-12-10 07:54] LABS: TOTAL PROTEIN 7.1 g/dL (6.4-8.3)
[2021-12-10 07:56] LABS: TOTAL BILIRUBIN 0.6 mg/dL (0.2-1.2)
== END ==
LOC: LAB 07:11
PROVIDERS: Internal Medicine
DX: C61 Malignant neoplasm of prostate (principal)

== ENCOUNTER → 2021-12-17 | Outpatient (CLI) | payer BC ==
[2021-12-17 10:29] LABS: BASO # 0.07 K/mm3 (0.02-0.10); EOS # 0.03 K/mm3 (0.04-0.40); EOS % 0.4 % (0.0-4.0); HEMATOCRIT 36.9 % (42.0-52.0); HEMOGLOBIN 11.5 g/dL (13.5-18.0); LYMPH# 0.63 K/mm3 (1.50-4.00); MEAN CELL VOLUME 90 fl (78-100); MEAN CORPUSCULAR HEMOGLOBIN 28 pg (27-31); MEAN CORPUSCULAR HGB CONC 31 g/dL (33-37); MEAN PLATELET VOLUME 9.5 fl (7.4-10.4); NEU # 5.77 K/mm3 (1.40-6.50); PLATELET COUNT 382 K/mm3 (130-400); RED CELL DISTRIBUTION WIDTH 17.2 % (11.5-14.5); WHITE BLOOD COUNT 7.3 K/mm3 (4.8-10.8)
[2021-12-17 12:08] LABS: ALBUMIN 3.7 g/dL (3.5-5.0)
[2021-12-17 12:09] LABS: POTASSIUM 4.1 mmol/L (3.5-5.1); SODIUM 139 mmol/L (136-145)
[2021-12-17 12:10] LABS: CALCIUM 12.1 mg/dL (8.3-10.5)
[2021-12-17 12:11] LABS: GLUCOSE 119 mg/dL (75-110); TOTAL PROTEIN 6.9 g/dL (6.4-8.3)
[2021-12-17 12:12] LABS: CARBON DIOXIDE 24 mmol/L (22-29)
[2021-12-17 12:13] LABS: TOTAL BILIRUBIN 0.5 mg/dL (0.2-1.2)
[2021-12-17 12:16] LABS: AST-SGOT 44 U/L (5-34)
[2021-12-17 12:17] LABS: ALT/SGPT 52 U/L (0-55)
== END ==
LOC: LAB 07:28
PROVIDERS: Internal Medicine
DX: C61 Malignant neoplasm of prostate (principal)

== ENCOUNTER → 2021-12-25 | Outpatient (CLI) | payer BC ==
[2021-12-25 07:57] LABS: HEMATOCRIT 36.2 % (42.0-52.0); HEMOGLOBIN 11.6 g/dL (13.5-18.0); MEAN CELL VOLUME 88 fl (78-100); MEAN CORPUSCULAR HEMOGLOBIN 28 pg (27-31); MEAN CORPUSCULAR HGB CONC 32 g/dL (33-37); MEAN PLATELET VOLUME 9.4 fl (7.4-10.4); PLATELET COUNT 419 K/mm3 (130-400); RED BLOOD COUNT 4.13 M/mm3 (4.20-5.60); RED CELL DISTRIBUTION WIDTH 16.6 % (11.5-14.5); WHITE BLOOD COUNT 14.5 K/mm3 (4.8-10.8)
[2021-12-25 08:04] LABS: ALBUMIN 3.6 g/dL (3.5-5.0); POTASSIUM 4.3 mmol/L (3.5-5.1); SODIUM 133 mmol/L (136-145)
[2021-12-25 08:05] LABS: CALCIUM 8.9 mg/dL (8.3-10.5)
[2021-12-25 08:06] LABS: GLUCOSE 124 mg/dL (75-110); TOTAL PROTEIN 7.3 g/dL (6.4-8.3)
[2021-12-25 08:08] LABS: CARBON DIOXIDE 23 mmol/L (22-29); TOTAL BILIRUBIN 1.3 mg/dL (0.2-1.2)
[2021-12-25 08:12] LABS: AST-SGOT 30 U/L (5-34)
[2021-12-25 08:13] LABS: ALT/SGPT 40 U/L (0-55)
[2021-12-25 09:07] LABS: LYMPHOCYTE 3 % (20-51); MONOCYTE 4 % (3-10); NEUTROPHILS 93 % (42-75)
[2021-12-25 09:09] LABS: MICROCYTOSIS 1+; TOXIC GRANULATION PRESENT
== END ==
LOC: LAB 07:18
PROVIDERS: Internal Medicine
DX: C61 Malignant neoplasm of prostate (principal)

== ENCOUNTER → 2021-12-31 | Outpatient (CLI) | payer BC ==
[2021-12-31 08:59] LABS: HEMATOCRIT 37.6 % (42.0-52.0); MEAN CELL VOLUME 88 fl (78-100); MEAN CORPUSCULAR HEMOGLOBIN 28 pg (27-31); MEAN CORPUSCULAR HGB CONC 32 g/dL (33-37); MEAN PLATELET VOLUME 9.1 fl (7.4-10.4); PLATELET COUNT 539 K/mm3 (130-400); RED BLOOD COUNT 4.29 M/mm3 (4.20-5.60); WHITE BLOOD COUNT 7.7 K/mm3 (4.8-10.8)
[2021-12-31 09:37] LABS: ALBUMIN 3.2 g/dL (3.5-5.0); POTASSIUM 5.1 mmol/L (3.5-5.1); SODIUM 135 mmol/L (136-145)
[2021-12-31 09:38] LABS: CALCIUM 9.3 mg/dL (8.3-10.5)
[2021-12-31 09:39] LABS: GLUCOSE 155 mg/dL (75-110); TOTAL PROTEIN 6.7 g/dL (6.4-8.3)
[2021-12-31 09:40] LABS: CARBON DIOXIDE 22 mmol/L (22-29)
[2021-12-31 09:41] LABS: TOTAL BILIRUBIN 0.7 mg/dL (0.2-1.2)
[2021-12-31 09:45] LABS: AST-SGOT 43 U/L (5-34)
[2021-12-31 09:46] LABS: ALT/SGPT 43 U/L (0-55)
[2021-12-31 12:00] LABS: LYMPHOCYTE 5 % (20-51); MONOCYTE 9 % (3-10); NEUTROPHILS 86 % (42-75)
[2021-12-31 12:01] LABS: POLYCHROMASIA 1+
== END ==
LOC: LAB 08:00
PROVIDERS: Internal Medicine
DX: C61 Malignant neoplasm of prostate (principal)

== ENCOUNTER → 2022-01-07 | Outpatient (CLI) | payer BC ==
[2022-01-07 12:00] LABS: BASO # 0.02 K/mm3 (0.02-0.10); EOS # 0.03 K/mm3 (0.04-0.40); EOS % 0.2 % (0.0-4.0); HEMATOCRIT 34.9 % (42.0-52.0); HEMOGLOBIN 10.7 g/dL (13.5-18.0); LYMPH# 0.85 K/mm3 (1.50-4.00); MEAN CELL VOLUME 91 fl (78-100); MEAN CORPUSCULAR HEMOGLOBIN 28 pg (27-31); MEAN CORPUSCULAR HGB CONC 31 g/dL (33-37); MEAN PLATELET VOLUME 9.2 fl (7.4-10.4); MONO # 1.34 K/mm3 (0.20-0.80); NEU # 11.36 K/mm3 (1.40-6.50); PLATELET COUNT 580 K/mm3 (130-400); RED BLOOD COUNT 3.83 M/mm3 (4.20-5.60); RED CELL DISTRIBUTION WIDTH 16.9 % (11.5-14.5); WHITE BLOOD COUNT 13.7 K/mm3 (4.8-10.8)
[2022-01-07 12:26] LABS: ALBUMIN 3.5 g/dL (3.5-5.0); POTASSIUM 4.8 mmol/L (3.5-5.1); SODIUM 138 mmol/L (136-145)
[2022-01-07 12:28] LABS: CALCIUM 10.2 mg/dL (8.3-10.5)
[2022-01-07 12:29] LABS: GLUCOSE 87 mg/dL (75-110)
[2022-01-07 12:30] LABS: CARBON DIOXIDE 22 mmol/L (22-29)
[2022-01-07 12:31] LABS: TOTAL BILIRUBIN 0.6 mg/dL (0.2-1.2)
[2022-01-07 12:34] LABS: AST-SGOT 66 U/L (5-34)
[2022-01-07 12:35] LABS: ALT/SGPT 69 U/L (0-55)
== END ==
LOC: LAB 07:19
PROVIDERS: Internal Medicine
DX: C61 Malignant neoplasm of prostate (principal)

== ENCOUNTER → 2022-01-11 | Outpatient (CLI) | payer BC | LOC: RAD 13:00 | DX: C61 Malignant neoplasm of prostate (principal); M89.9 Disorder of bone, unspecified; M48.56XA Collapsed vertebra, not elsewhere classified, lumbar region, initial encounter for fracture; N13.30 Unspecified hydronephrosis; R06.00 Dyspnea, unspecified; R59.0 Localized enlarged lymph nodes | CPT/HCPCS: Q9967 ==